=== PATIENT | female | born 1940 | race Caucasian/White ===

== ENCOUNTER 2017-12-06 15:37 | Emergency (ER) | payer OTHER ==
--- NOTE | 2017-12-06 16:16 | PDOC ---
History of Present Illness - General Chief Complaint: Irregular Heart Beat Stated Complaint: DEFIBRILLATOR PROBLEM Time Seen by Provider: 12/06/17 16:16 - History of Present Illness Initial Comments: 12/06/17 16:17 Ms. Thomson is a 77 yo female w/ pmh of GERD, HLD, afib w/ AICD ([employer]), CHF, and DM BIBA from [facility] for evaluation of AICD. Patient reports she has been hearing beeping from device intermittently for several days and became concerned. Has no other complaints at this time. Device is a biventricular defibrillator (per [employer]). The patient denies chest pain, shortness of breath, headache and dizziness. Denies fever, chills, nausea, vomit, diarrhea and constipation. Denies dysuria, frequency, urgency and hematuria. Allergies: NKDA Past History - Past Medical History Allergies/Adverse Reactions: Allergies Allergy/AdvReac Type Severity Reaction Status Date / Time ramipril Allergy UNKNOWN Verified 12/06/17 17:25 Home Medications: Ambulatory Orders Amiodarone HCl 200 mg PO DAILY 12/06/17 Aspirin 81 mg PO DAILY 12/06/17 Bisacodyl [Dulcolax] 5 mg PO HS PRN 12/06/17 Carvedilol 6.25 mg PO BID 12/06/17 Docusate Sodium [Colace] 100 mg PO DAILY 12/06/17 FA/Vit C/E/Zinc/Copper/Lut/Maya [Ocuvel Capsule] 1 tab PO DAILY 12/06/17 Insulin Lispro [Humalog] 25 unit SQ TID 12/06/17 Review of Systems - Review of Systems Comments:: 12/06/17 16:56 GENERAL/CONSTITUTIONAL: No fever or chills. No weakness. HEAD, EYES, EARS, NOSE AND THROAT: No change in vision. No ear pain or discharge. No sore throat. CARDIOVASCULAR: No chest pain or shortness of breath RESPIRATORY: No cough, wheezing, or hemoptysis. GASTROINTESTINAL: No nausea, vomiting, diarrhea or constipation. GENITOURINARY: No dysuria, frequency, or change in urination. MUSCULOSKELETAL: No joint or muscle swelling or pain. No neck or back pain. SKIN: No rash NEUROLOGIC: No headache, vertigo, loss of consciousness, or change in strength/ sensation. ENDOCRINE: No increased thirst. No abnormal weight change HEMATOLOGIC/LYMPHATIC: No anemia, easy bleeding, or history of blood clots. ALLERGIC/IMMUNOLOGIC: No hives or skin allergy. *Physical Exam - Physical Exam Comments: 12/06/17 16:56 GENERAL: Awake, alert, and fully oriented, in no acute distress HEAD: No signs of trauma, normocephalic, atraumatic EYES: PERRLA, EOMI, sclera anicteric, conjunctiva clear ENT: Auricles normal inspection, hearing grossly normal, nares patent, oropharynx clear without exudates. Moist mucosa NECK: Normal ROM, supple, no lymphadenopathy, JVD, or masses LUNGS: No distress, speaks full sentences, clear to auscultation bilaterally HEART: Regular rate and rhythm, normal S1 and S2, no murmurs, rubs or gallops, peripheral pulses normal and equal bilaterally. ABDOMEN: Soft, nontender, normoactive bowel sounds. No guarding, no rebound. No masses EXTREMITIES: Normal inspection, Normal range of motion, no edema. No clubbing or cyanosis. NEUROLOGICAL: Cranial nerves II through XII grossly intact. Normal speech, normal gait, no focal sensorimotor deficits SKIN: Warm, Dry, normal turgor, no rashes or lesions noted. Medical Decision Making - Medical Decision Making 12/06/17 16:57 Ms. Thomson is a 77 yo female w/ pmh as described who presents for evaluation of cardiac device. Patient currently has no other complaints. [employer] patient care representative paged for interrogation of device. 12/06/17 17:41 [employer] patient care representative onsite and interrogating device. 12/06/17 17:46 Per interrogation report Nov.27 device warning for low battery triggered; per [employer] patient care representative device is guaranteed for 3 months past this date. Device installed by Dr. Dejan Doss of [facility] who will be notified by [employer] patient care representative. No concern at this time however patient will need new device installed. Discussed with Brayden Lozoya (pt's nurse from [facility]). CT will coordinate w/ Dr. Doss for new device and accepted patient back. Discharging to home w/ plan for outpatient follow-up. *DC/Admit/Observation/Transfer Diagnosis at time of Disposition: Complication of cardiac device Qualifiers: Device complication type: mechanical Mechanical complication type: other Encounter type: initial encounter Qualified Code(s): T82.199A - Other mechanical complication of unspecified cardiac device, initial encounter - Discharge Dispostion Disposition: HOME - Referrals Referrals: Jovan Mclean [Primary Care Provider] - - Patient Instructions Additional Instructions: You were evaluated today in the ER for beeping from your implanted biventricular defibrillator. [employer] representatives evaluated the device and found the battery to be low. The battery is guaranteed to operate for 3 months from November 27 2017. [employer] will notify Dr. Doss from [facility] (who placed device) of battery status. Battery will need to be replaced before this time. Please work with Dr. Doss to accomplish this. Return to ER if any further problems, palpitations, shortness of breath, or other concerning symptoms. - Post Discharge Activity
[2017-12-06 16:36] VITALS: TEMP 97.8; BMI 26.6
--- NOTE | 2017-12-06 18:04 | PDOC ---
Attending Attestation - Resident Resident Name: Pascual Garcia - ED Attending Attestation I have performed the following: I have examined & evaluated the patient, The case was reviewed & discussed with the resident, I agree w/resident's findings & plan, Exceptions are as noted - HPI HPI: 12/06/17 19:46 Agree with residents HPI - Physicial Exam PE: 12/06/17 19:46 Agree with PE - Medical Decision Making 12/06/17 19:46 Paced rhythm on EKG. Patient presents with deepening from pacemaker for last several weeks. Pacemaker interrogated. Battery low however has 3 months left. [employer] will contact patient at shelter to replace battery. No indication for admission at this time. Findings, need follow-up and strict instructions discussed with patient. Heart Score/ECG Review - ECG Impressions Comment:: 12/06/17 19:45 Paced rhythm
[2017-12-06 21:07] VITALS: BP 130/67; PULSE 67
--- NOTE | 2017-12-09 22:17 | EKG ---
Test Reason : Blood Pressure : / mmHG Vent. Rate : 061 BPM Atrial Rate : 061 BPM P-R Int : 000 ms QRS Dur : 164 ms QT Int : 470 ms P-R-T Axes : 000 144 -21 degrees QTc Int : 473 ms AV dual-paced rhythm ABNORMAL ECG NO PREVIOUS ECGS AVAILABLE Confirmed by KELLY FLORES MD ([id number]) on 12/09/2017 10:17:34 PM Referred By: Confirmed By:KELLY FLORES MD
== END 2017-12-06 20:38 | disposition home or self-care (01) ==
LOC: JER 15:37
DX: T82.198A Other mechanical complication of other cardiac electronic device, initial encounter (principal); I25.10 Atherosclerotic heart disease of native coronary artery without angina pectoris; I50.9 Heart failure, unspecified; I48.91 Unspecified atrial fibrillation; E11.9 Type 2 diabetes mellitus without complications; Z79.4 Long term (current) use of insulin; E78.00 Pure hypercholesterolemia, unspecified; K21.9 Gastro-esophageal reflux disease without esophagitis
CPT/HCPCS: 93005; 93010; 99283-25

== ENCOUNTER 2023-07-25 17:54 | Inpatient (IN) | payer OTHER ==
[2023-07-25 18:56] LABS: BASO % 0.6 % (0-2.0); EOS % 1.6 % (0-4.5); HEMATOCRIT 31.4 % (32.4-45.2); HEMOGLOBIN 9.5 GM/dL (10.7-15.3); LYMPH % 13.4 % (8-40); MCH 24.4 pg (25.7-33.7); MCHC 30.4 g/dl (32.0-36.0); MEAN CELL VOLUME 80.3 fl (80-96); MEAN PLT VOLUME 7.8 fl (7.5-11.1); MONO % 12.1 % (3.8-10.2); NEUT % 72.3 % (42.8-82.8); PLATELET COUNT 187 10^3/uL (134-434); RBC 3.91 M/mm3 (3.60-5.2); RDW 19.6 % (11.6-15.6); WHITE BLOOD COUNT 7.2 K/mm3 (4.0-10.0)
[2023-07-25 19:02] LABS: INR 2.71 (0.83-1.09); PROTHROMBIN TIME (PATIENT) 29.7 SEC (9.7-13.0)
[2023-07-25 19:04] LABS: ACTIVATED PTT 39.3 SECONDS (25.2-36.5)
[2023-07-25 19:13] LABS: CHLORIDE 106 mmol/L (98-107); SODIUM 134 mmol/L (136-145)
[2023-07-25 19:15] LABS: CALCIUM 8.4 mg/dL (8.5-10.1); CO2 28 mmol/L (21-32); GLUCOSE,RANDOM 111 mg/dL (74-106); MAGNESIUM 2.8 mg/dL (1.8-2.4)
[2023-07-25 19:16] LABS: ALBUMIN 2.5 g/dl (3.4-5.0)
[2023-07-25 19:18] LABS: CREATININE 3.6 mg/dL (0.55-1.3); SGPT/ALT 17 U/L (13-61)
[2023-07-25 19:19] LABS: SGOT/AST 60 U/L (15-37)
[2023-07-25 19:20] LABS: BILIRUBIN,TOTAL 0.4 mg/dL (0.2-1); TOT PROT 7.1 g/dl (6.4-8.2)
[2023-07-25 19:21] LABS: ALK PHOS 92 U/L (45-117)
[2023-07-25 19:27] LABS: ANION GAP 0 mmol/L (4-13); BLOOD UREA NITROGEN 113.2 mg/dL (7-18); POTASSIUM 7.1 mmol/L (3.5-5.1)
[2023-07-25] MEDS ORDERED: DEXTROSE 50%-WATER 25 GM/50 ML DISP.SYRIN ONE (20:44)
[2023-07-25] MEDS ORDERED: INSULIN REGULAR HUMAN 100 UNITS/ML *VIAL ONE (20:44)
[2023-07-25 20:58] LABS: CHLORIDE 109 mmol/L (98-107); POTASSIUM 5.8 mmol/L (3.5-5.1); SODIUM 136 mmol/L (136-145)
[2023-07-25 21:00] LABS: CALCIUM 8.5 mg/dL (8.5-10.1)
[2023-07-25 21:01] LABS: ALBUMIN 2.6 g/dl (3.4-5.0); ANION GAP 4 mmol/L (4-13); CO2 22 mmol/L (21-32); GLUCOSE,RANDOM 112 mg/dL (74-106)
[2023-07-25 21:04] LABS: CREATININE 3.5 mg/dL (0.55-1.3); SGOT/AST 10 U/L (15-37); SGPT/ALT 9 U/L (13-61)
[2023-07-25 21:06] LABS: BILIRUBIN,TOTAL 0.5 mg/dL (0.2-1); TOT PROT 6.8 g/dl (6.4-8.2)
[2023-07-25 21:07] LABS: ALK PHOS 91 U/L (45-117)
[2023-07-25] MEDS: SODIUM CHLORIDE 0.9% 500 ML INFUS.BAG IV ONE (21:12)
[2023-07-25] MEDS: INSULIN REGULAR HUMAN 100 UNITS/ML *VIAL IVPUSH ONE (21:12)
[2023-07-25] MEDS: DEXTROSE 50%-WATER - 25 GM/50 ML VIAL IVPUSH ONE (21:12)
[2023-07-25 21:32] LABS: BLOOD UREA NITROGEN 111.5 mg/dL (7-18)
[2023-07-25] MEDS ORDERED: SODIUM ZIRCONIUM CYCLOSILICATE (LOKELMA) 5 GM PACKET ONE (21:44)
[2023-07-25] MEDS ORDERED: CALCIUM GLUC IN NACL, ISO-OSM 1 GM/50 ML BAG IVPB ONE (21:44)
[2023-07-25 21:49] LABS: EPI CELLS >36 /uL (0-25.1); HYALINE CASTS 119 /uL (0-3.1); URINE APPEARANCE TURBID; URINE BACTERIA 6872 /uL (0-1359); URINE BILIRUBIN NEGATIVE (NEGATIVE); URINE COLOR RED; URINE GLUCOSE (UA) NEGATIVE (NEGATIVE); URINE KETONE NEGATIVE (NEGATIVE); URINE LEUK ESTERASE 3+ (NEGATIVE); URINE NITRITE NEGATIVE (NEGATIVE); URINE PROTEIN 3+ (NEGATIVE); URINE UROBILINOGEN 0.2 mg/dL (0.2-1.0); URINE WBC 7688 /uL (0-25.8)
[2023-07-25] MEDS: SODIUM ZIRCONIUM CYCLOSILICATE (LOKELMA) 5 GM PACKET PO ONE (21:53)
[2023-07-25] MEDS: CALCIUM GLUCONATE 10% - 1,000 MG/10 ML VIAL IVPUSH ONE (21:53)
[2023-07-25 22:45] LABS: URINE RBC 2632.7 /uL (0-23.9); YEAST NONE SEEN (NEGATIVE)
[2023-07-25 22:46] LABS: URINE CRYSTALS MODERATE /hpf
[2023-07-25] MEDS ORDERED: CEFTRIAXONE 1 GM/50 ML BAG ONE (23:33)
[2023-07-25] MEDS: CEFTRIAXONE 1 GM in DEXTROSE 5%-WATER - 100 ML IVPB ONE (23:52)
[2023-07-26] MEDS: SODIUM CHLORIDE 0.45% 1,000 ML IV SCH (02:22)
[2023-07-26 03:43] LABS: CHLORIDE 110 mmol/L (98-107); POTASSIUM 5.7 mmol/L (3.5-5.1); SODIUM 140 mmol/L (136-145)
[2023-07-26 03:45] LABS: CALCIUM 8.8 mg/dL (8.5-10.1)
[2023-07-26 03:46] LABS: ANION GAP 7 mmol/L (4-13); CO2 23 mmol/L (21-32); GLUCOSE,RANDOM 112 mg/dL (74-106); MAGNESIUM 2.6 mg/dL (1.8-2.4)
[2023-07-26 03:49] LABS: CREATININE 3.3 mg/dL (0.55-1.3); PHOSPHOROUS 4.2 mg/dL (2.5-4.9)
[2023-07-26 03:52] LABS: BLOOD UREA NITROGEN 105.6 mg/dL (7-18)
[2023-07-26 05:35] VITALS: BMI 23.5
[2023-07-26] MEDS: INSULIN ASPART SLIDING SCALE (NOVOLOG) 1 VIAL SQ SCH (06:19)
[2023-07-26] MEDS: SODIUM ZIRCONIUM CYCLOSILICATE (LOKELMA) 5 GM PACKET PO ONE (06:22)
[2023-07-26 07:34] LABS: BASO % 0.8 % (0-2.0); EOS % 1.2 % (0-4.5); HEMATOCRIT 31.6 % (32.4-45.2); HEMOGLOBIN 9.7 GM/dL (10.7-15.3); LYMPH % 17.5 % (8-40); MCH 24.4 pg (25.7-33.7); MCHC 30.7 g/dl (32.0-36.0); MEAN CELL VOLUME 79.5 fl (80-96); MEAN PLT VOLUME 7.7 fl (7.5-11.1); MONO % 10.6 % (3.8-10.2); NEUT % 69.9 % (42.8-82.8); PLATELET COUNT 182 10^3/uL (134-434); RBC 3.98 M/mm3 (3.60-5.2); RDW 19.5 % (11.6-15.6); WHITE BLOOD COUNT 7.3 K/mm3 (4.0-10.0)
[2023-07-26 07:49] LABS: CHLORIDE 107 mmol/L (98-107); POTASSIUM 5.2 mmol/L (3.5-5.1); SODIUM 137 mmol/L (136-145)
[2023-07-26 07:53] LABS: ANION GAP 5 mmol/L (4-13); CO2 25 mmol/L (21-32); GLUCOSE,RANDOM 102 mg/dL (74-106)
[2023-07-26 07:55] LABS: CALCIUM 8.6 mg/dL (8.5-10.1); MAGNESIUM 2.5 mg/dL (1.8-2.4)
[2023-07-26 07:56] LABS: CREATININE 3.2 mg/dL (0.55-1.3); PHOSPHOROUS 3.9 mg/dL (2.5-4.9)
[2023-07-26 07:58] LABS: BLOOD UREA NITROGEN 105.3 mg/dL (7-18)
[2023-07-26] MEDS: CARVEDILOL 12.5 MG TABLET (FP) PO SCH (10:23)
[2023-07-26] MEDS: APIXABAN 2.5 MG TABLET PO SCH (10:23)
[2023-07-26] MEDS: FAMOTIDINE 10 MG TABLET PO SCH (10:23)
[2023-07-26] MEDS: ISOSORBIDE MONONITRATE 60 MG TAB.SR.24H (FP) PO SCH (10:23)
[2023-07-26] MEDS: CHOLECALCIFEROL (VIT D3) 1,000 UNIT (25 MCG) TABLET PO SCH (10:23)
[2023-07-26] MEDS: CEFTRIAXONE 1 GM in DEXTROSE 5%-WATER - 50 ML IVPB SCH (10:23)
[2023-07-26] MEDS: hydrALAZINE HCL 10 MG TABLET PO SCH (14:21)
[2023-07-26] MEDS: MELATONIN 5 MG TABLETS PO PRN (22:56)
[2023-07-27] MEDS: SODIUM ZIRCONIUM CYCLOSILICATE (LOKELMA) 5 GM PACKET PO SCH (10:21)
[2023-07-27 11:13] LABS: BASO % 0.8 % (0-2.0); EOS % 1.7 % (0-4.5); HEMOGLOBIN 9.7 GM/dL (10.7-15.3); LYMPH % 16.1 % (8-40); MCH 24.7 pg (25.7-33.7); MCHC 31.3 g/dl (32.0-36.0); MEAN PLT VOLUME 7.7 fl (7.5-11.1); MONO % 9.6 % (3.8-10.2); NEUT % 71.8 % (42.8-82.8); PLATELET COUNT 174 10^3/uL (134-434); RBC 3.92 M/mm3 (3.60-5.2); RDW 19.5 % (11.6-15.6); WHITE BLOOD COUNT 6.2 K/mm3 (4.0-10.0)
[2023-07-27 11:28] LABS: POTASSIUM 4.6 mmol/L (3.5-5.1)
[2023-07-27 11:34] LABS: ALBUMIN 2.6 g/dl (3.4-5.0); BLOOD UREA NITROGEN 90.7 mg/dL (7-18); CALCIUM 8.6 mg/dL (8.5-10.1)
[2023-07-27 11:37] LABS: CREATININE 2.8 mg/dL (0.55-1.3)
[2023-07-27 11:39] LABS: BILIRUBIN,TOTAL 0.5 mg/dL (0.2-1)
[2023-07-27] MEDS ORDERED: INSULIN (NOVOLOG) ASPART 100 UNITS/ML 10ML VIAL ONE (11:45)
[2023-07-29 07:49] LABS: BASO % 1.1 % (0-2.0); EOS % 2.3 % (0-4.5); HEMATOCRIT 31.1 % (32.4-45.2); HEMOGLOBIN 9.5 GM/dL (10.7-15.3); LYMPH % 20.2 % (8-40); MCH 24.1 pg (25.7-33.7); MCHC 30.4 g/dl (32.0-36.0); MEAN CELL VOLUME 79.3 fl (80-96); MEAN PLT VOLUME 7.6 fl (7.5-11.1); MONO % 10.6 % (3.8-10.2); NEUT % 65.8 % (42.8-82.8); PLATELET COUNT 163 10^3/uL (134-434); RBC 3.93 M/mm3 (3.60-5.2); RDW 19.9 % (11.6-15.6); WHITE BLOOD COUNT 6.4 K/mm3 (4.0-10.0)
[2023-07-29 07:54] LABS: INR 1.68 (0.83-1.09); PROTHROMBIN TIME (PATIENT) 18.7 SEC (9.7-13.0)
[2023-07-29 07:57] LABS: ACTIVATED PTT 35.9 SECONDS (25.2-36.5)
[2023-07-29 08:05] LABS: POTASSIUM 4.6 mmol/L (3.5-5.1)
[2023-07-29 08:09] LABS: ALBUMIN 2.6 g/dl (3.4-5.0); CALCIUM 8.7 mg/dL (8.5-10.1)
[2023-07-29 08:10] LABS: BLOOD UREA NITROGEN 88.9 mg/dL (7-18)
[2023-07-29 08:13] LABS: CREATININE 2.3 mg/dL (0.55-1.3)
[2023-07-29 08:14] LABS: BILIRUBIN,TOTAL 0.5 mg/dL (0.2-1)
[2023-07-29] MEDS: CEFUROXIME AXETIL 250 MG TABLET PO SCH (21:46)
[2023-07-30 14:33] LABS: BF WBC & OTHER NUCLEATED CELLS 302 /mm3
[2023-07-30 14:40] LABS: BODY FLUID MACROPHAGES 29 %; BODY FLUID MESOTHELIAL 6 %
[2023-07-30 23:51] VITALS: RESP 20
[2023-07-31 03:18] VITALS: TEMP 98.2
[2023-07-31 10:26] VITALS: BP 114/65; PULSE 64
[2023-07-31 16:10] LABS: BODY FLUID ALBUMIN 1.9 g/dL (Not Estab.)
== END 2023-07-31 13:45 | DRG 187 ==
LOC: JER 17:54 → JERBED 07-26 00:05 → J4W 07-26 04:19
PROVIDERS: ADMIT Internal Medicine; ATTEND Family Medicine
PROC: 0W993ZZ Drainage of Right Pleural Cavity, Percutaneous Approach (ICD-10-PCS; principal; 2023-07-30)
DX: J90 Pleural effusion, not elsewhere classified (principal); I13.0 Hypertensive heart and chronic kidney disease with heart failure and stage 1 through stage 4 chronic kidney disease, or unspecified chronic kidney disease; N39.0 Urinary tract infection, site not specified; N17.9 Acute kidney failure, unspecified; J98.11 Atelectasis; N18.4 Chronic kidney disease, stage 4 (severe); I50.22 Chronic systolic (congestive) heart failure; B96.4 Proteus (mirabilis) (morganii) as the cause of diseases classified elsewhere; D64.9 Anemia, unspecified; E78.5 Hyperlipidemia, unspecified; I48.91 Unspecified atrial fibrillation; E87.5 Hyperkalemia; F03.90 Unspecified dementia, unspecified severity, without behavioral disturbance, psychotic disturbance, mood disturbance, and anxiety; E88.09 Other disorders of plasma-protein metabolism, not elsewhere classified; E11.22 Type 2 diabetes mellitus with diabetic chronic kidney disease; Z95.810 Presence of automatic (implantable) cardiac defibrillator
CPT/HCPCS: 36415; 71045-TC-FY; 71046-TC-FY; 71250-TC; 76775-TC; 76942; 80048; 80053; 81003; 82042; 82150; 82465; 82962; 83615; 83735; 83986; 84100; 84157; 84478; 85025; 85610; 85730; 86704; 86803; 87070; 87075; 87086; 87102; 87116; 87186; 87205; 87206; 87210; 87340; 87517; 88108; 88305-TC; 93005; 93010; 99285-25